=== PATIENT | male | born 1980 | race Caucasian/White ===

== ENCOUNTER 2020-12-03 12:08 | Emergency (ER) | payer SELFPAY ==
[~2020-12-03] VITALS: Ht 170.2 cm; Wt 100.0 kg
[2020-12-03] MEDS ORDERED: KETOROLAC 60MG/2ML VIAL IM ONE (12:30)
[2020-12-03] MEDS ORDERED: CYCLOBENZAPRINE 10MG TABLET PO ONE (12:45)
[2020-12-03 13:24] LABS: CLARITY URINE CLEAR (CLEAR); COLOR URINE YELLOW (YELLOW); KETONES URINE NEGATIVE (NEGATIVE); LEUKOCYTE ESTERASE URINE NEGATIVE (NEGATIVE); NITRITE URINE NEGATIVE (NEGATIVE); OCCULT BLOOD URINE NEGATIVE (NEGATIVE); PH URINE 6.5 (4.5-8.0); PROTEIN URINE NEGATIVE (NEGATIVE); SPECIFIC GRAVITY URINE 1.018 (1.005-1.030); UROBILINOGEN URINE 0.2 E.U./dL (0.2-1.0)
[2020-12-03] MEDS ORDERED: CYCL10TA7 MT (14:17)
[2020-12-03] MEDS ORDERED: IBUP-2030 MT (14:17)
[2020-12-03 15:20] VITALS: BP 131/88
== END 2020-12-03 15:22 | disposition home or self-care (01) ==
LOC: ER 12:08
DX: S39.012A Strain of muscle, fascia and tendon of lower back, initial encounter (principal); Z98.890 Other specified postprocedural states; Z79.899 Other long term (current) drug therapy; X58.XXXA Exposure to other specified factors, initial encounter; Y93.89 Activity, other specified; Y92.89 Other specified places as the place of occurrence of the external cause; Y99.8 Other external cause status
CPT/HCPCS: 81003; 96372; 99283; J1885